=== PATIENT | female | born 1950 | race Caucasian/White ===

== ENCOUNTER 2016-12-06 10:35 | Emergency (ER) | payer MEDICARE, BC ==
[~2016-12-06 10:35] MED LIST: ABILIFY10 M1 PO; ABILIFY5 M1 PO; ALPRAZOLAM0.5 M2 PO; AMBIEN CR12.5 MG/BO; AMBIEN10 MG PO; AMITRIPTYLINE100 M1 PO; AMRIX15 MG; AMRIX15 MG PO; ANTIVERT25 MG PO; ASPIR 8181 M1 PO; BACLOFEN10 MG PO; BENICAR40 MG; BENICAR40 MG PO; CALCIUM 600 +1 EAC7 PO; CALCIUM CITRAT1 EAC7 PO; CALCIUM CITRAT250 MG PO; CENTRUM SILVER1 TAB PO; CHOLEST OFF450 MG PO; CIPRO250 MG PO; CIPRO500 MG PO; CLONAZEPAM1 M2 PO; CLONAZEPAM1 MG; CLONAZEPAM1 MG PO; COMPAZINE10 M PO; COMPAZINE25 MG/SUPP PR; COREG12.5 MG; COREG12.5 MG PO; COREG25 M1 PO; COREG25 MG; COREG25 MG PO; COUMADIN5 M1; COUMADIN5 M1 PO; COUMADIN5 M2 PO; COUMADIN5 MG; COUMADIN5 MG PO; COUMADIN7.5 M1 PO; COUMADIN7.5 MG; COUMADIN7.5 MG PO; COZAAR100 MG PO; CREON DR 12,001 EAC1 PO; CREON DR 12,001 EACH PO; CREON DR 6,0001 EACH PO; CRESTOR10 MG PO; D3-5050000 UNIT PO; DIAZEPAM5 M PO; EFFEXOR37.5 MG; EFFEXOR75 MG; EFFEXOR75 MG PO; ELAVIL100 MG; ELAVIL100 MG PO; ENALAPRIL MALEA20 MG; EQL FISH OIL 1,1 CA1 PO; FISH OIL 1,0001 CA; FISH OIL 1,0001 CA1; FISH OIL 1,0001 CA1 PO; FISH OIL 1,2001 CAP PO; FISH OIL 1,4001 EAC1 PO; FLECTOR1 EACH TP; FLEXERIL10 MG PO; FROVA2.5 MG; FROVA2.5 MG PO; GEMFIBROZIL600 M1 PO; GEMFIBROZIL600 M2 PO; HUMALOG100 U/ML SQ; HYDROCODON-ACE1 EAC7 PO; HYDROCODON-ACET15 ML PO; HYDROCODONE-AP473 ML PO; IMDUR30 MG PO; KEFLEX250 MG PO; KEFLEX500 MG PO; LANTUS SOL100 UNIT/1 SC; LANTUS100 U/ML; LANTUS100 U/ML SC; LASIX; LASIX20 MG; LASIX20 MG PO; LIVALO4 MG PO; LORTAB 5-500 T1 EAC1 PO; LORTAB 5/500 TA1 TAB; LORTAB 5/5001 EA PO; LORTAB 7.5/5001 EA PO; LORTAB 7.5/5001 TAB PO; LOVASA; LOVAZA1 GM PO; LOVENOX; LOVENOX40 MG/0.4 SQ; LYRICA25 MG; MAALOX SUSPENSI30 ML PO; MELATONIN; MULTI VITAMIN1 EAC1 PO; MULTI VITAMIN1 EAC2 PO; MYLANTA LIQ355 ML PO; MYLANTA LIQUID355 M1 PO; NEURONTIN100 MG PO; NORCO 10/325 TA1 TAB PO; NORCO 5-325 TA1 EACH PO; NORCO 5/325 TAB1 TAB; NORCO 5/325 TAB1 TAB PO; NORVASC5 M1 PO; NORVASC5 MG PO; NOVOLOG; NOVOLOG FL100 UNIT/2 SC; NOVOLOG100 U/M; NOVOLOG100 U/M SC; NOVOLOG100 U/M SQ; PERCOCET 5/3251 TAB PO; PERCOCET 5MG/AP1 TA1 PO; PHENERGAN25 MG PO; PRAVACHOL20 MG; PRAVACHOL80 MG; PRAVACHOL80 MG PO; PRENATAL1 EACH PO; PRILOSEC20 MG PO; PRINIVIL10 M1 PO; PROTONIX20 M1 PO; PROTONIX20 M2 PO; PROTONIX20 MG PO; RENVELA800 M1 PO; ROXICET 5/325500 ML; SINGULAIR10 MG; SINGULAIR10 MG PO; SONATA10 M2 PO; TAMIFLU75 MG; TRAMADOL PO; TRICOR145 M1 PO; TRICOR145 MG; TYLENOL500 MG; ULTRAM50 MG; ULTRAM50 MG PO; VALIUM5 MG; VALIUM5 MG PO; VALTURNA 150-11 EACH PO; VASOTEC20 MG PO; VIBRA-TABS100 MG PO; VICTOZA SC; VICTOZA0.6 MG/0.1 SQ; VISTARIL50 MG PO; VITAMIN D; VITAMIN D3 IM; VITAMIN D33000 UNI1 PO; VITAMIN D35000 UNI3 PO; VITAMIN D350000 UNIT; VITAMIN D400 UNI1 PO; WARFARIN SODIUM5 MG; WELLBUTRIN100 M2 PO; ZANAFLEX4 M; ZANAFLEX4 M PO; ZANAFLEX4 MG; ZETIA10 M1 PO; ZOFRAN ODT4 MG PO; ZOFRAN ODT4 MG/UDTAB PO; ZOFRAN4 M1 PO; ZYRTEC10 MG; [UNRECOGNIZED DRUG - OTHER] PO
[2016-12-06] MEDS ORDERED: WELLBUTRIN SR150 M2 PO (10:50)
[2016-12-06] MEDS ORDERED: COUMADIN5 M2 PO (10:54)
[2016-12-06] MEDS ORDERED: TRAZODONE HCL50 M1 PO (10:54)
[2016-12-06 11:39] LABS: URINE APPEARANCE HAZY; URINE BILIRUBIN NEGATIVE (NEG); URINE BLOOD MODERATE (NEG); URINE COLOR YELLOW; URINE GLUCOSE (UA) SMALL (NEG); URINE KETONE NEGATIVE (NEG); URINE LEUKOCYTE ESTERASE POSITIVE (NEG); URINE NITRITE NEGATIVE (NEG); URINE PROTEIN LARGE (NEG); URINE SPECIFIC GRAVITY 1.015 (1.003-1.030)
[2016-12-06] MEDS ORDERED: PERCOCET 7.5-31 EAC1 PO (12:31)
[2016-12-06] MEDS ORDERED: CYCLOBENZAPRINE5 M1 PO (12:31)
== END 2016-12-06 12:39 ==
LOC: EDMED 10:35
PROVIDERS: Nurse Practitioner Family
DX: S39.012A Strain of muscle, fascia and tendon of lower back, initial encounter (principal); I12.0 Hypertensive chronic kidney disease with stage 5 chronic kidney disease or end stage renal disease; E11.22 Type 2 diabetes mellitus with diabetic chronic kidney disease; N18.6 End stage renal disease; F17.200 Nicotine dependence, unspecified, uncomplicated; Z99.2 Dependence on renal dialysis; Z79.4 Long term (current) use of insulin; Z98.1 Arthrodesis status; Z90.49 Acquired absence of other specified parts of digestive tract; Z79.01 Long term (current) use of anticoagulants; Z79.82 Long term (current) use of aspirin; W19.XXXA Unspecified fall, initial encounter
CPT/HCPCS: J2360